=== PATIENT | male | born 2000 | race Caucasian/White ===

== ENCOUNTER 2018-02-09 10:32 | Outpatient (CLI) | payer BC ==
--- NOTE | 2018-02-09 11:55 | Ultrasound Report ---
ULTRASOUND THYROID SCAN History: Nontoxic goiter unspecified. Findings: The thyroid gland is normal size, contour and echotexture. No evidence for cyst or mass. Normal color Doppler interrogation. Impression: Normal thyroid gland.
== END 2018-02-09 10:33 | disposition home or self-care (01) ==
LOC: US 10:32
PROVIDERS: ATTEND Internal Medicine
DX: E04.9 Nontoxic goiter, unspecified (principal)
CPT/HCPCS: 76536